=== PATIENT | female | born 1970 | race Caucasian/White ===

== ENCOUNTER 2016-11-10 05:25 | Inpatient (IN) | payer OTHER ==
[~2016-11-10] VITALS: Ht 166.4 cm; Wt 86.8 kg
[~2016-11-10 05:25] MED LIST: BENADRYL25 MG PO; BENTYL10 MG PO; CIPRO500 MG PO; CIPROFLOXACIN500 M1 PO; CLEOCIN300 MG PO; CLINDAMYCIN HC300 MG PO; DEPO-PROVE150 MG/11 IM; Ecotrin PO; Habitrol,Nicoderm CQ TD; IRON325 M1 PO; LEVO-T150 MCG PO; LEVOTHYROXINE100 MCG PO; LEVOTHYROXINE125 MCG PO; METADATE CD20 MG PO; MOBIC15 MG PO; MOTRIN800 MG PO; NABUMETONE750 MG PO; NAPROXEN500 MG PO; OXYCODONE HCL15 MG PO; PERCOCET 5/31 TABLET PO; PYRIDIUM100 MG PO; ROXICODONE15 MG PO; VENLAFAXINE HC150 M1 PO; VENLAFAXINE HCL75 M3 PO
[2016-11-10] MEDS ORDERED: WOMEN'S MULTI200 MCG PO (06:02)
[2016-11-10 06:03] VITALS: BP 105/68
[2016-11-10 10:47] VITALS: BP 110/56
[2016-11-10 12:30] VITALS: BP 92/65
[2016-11-10 20:07] VITALS: BP 115/68
[2016-11-11 00:15] VITALS: BP 133/62
[2016-11-11 04:00] VITALS: BP 103/70
[2016-11-11 05:27] LABS: HEMATOCRIT 28.2 % (36.0-46.0); MCV 96.2 FL (83-99)
[2016-11-11 08:00] VITALS: BP 127/59
[2016-11-11 12:00] VITALS: BP 108/55
[2016-11-11] MEDS ORDERED: CELECOXIB200 MG PO (13:07)
[2016-11-11] MEDS ORDERED: XARELTO10 MG PO (13:07)
[2016-11-11] MEDS ORDERED: TYLENOL REGULA325 MG PO (13:08)
[2016-11-11] MEDS ORDERED: SENNA PLUS TAB1 EACH PO (13:08)
[2016-11-11] MEDS ORDERED: LIDOCAINE700 MG TD (13:08)
[2016-11-11] MEDS ORDERED: OXYCONTIN10 MG PO (13:08)
[2016-11-11 16:04] VITALS: BP 109/57
== END 2016-11-11 17:15 | disposition home health service (06) | DRG 470 ==
LOC: 2SOUTH 05:25 → 3WEST 10:26 → 2SOUTH 10:29 → 3WEST 11-11 17:15
PROVIDERS: Orthopaedic Surgery
PROC: 0SRB04A Replacement of Left Hip Joint with Ceramic on Polyethylene Synthetic Substitute, Uncemented, Open Approach (ICD-10-PCS; principal; 2016-11-10)
DX: M16.12 Unilateral primary osteoarthritis, left hip (principal); C85.90 Non-Hodgkin lymphoma, unspecified, unspecified site; E03.9 Hypothyroidism, unspecified; F17.210 Nicotine dependence, cigarettes, uncomplicated; E66.9 Obesity, unspecified; Z68.31 Body mass index [BMI] 31.0-31.9, adult; Z85.3 Personal history of malignant neoplasm of breast; Z88.0 Allergy status to penicillin
CPT/HCPCS: 73501; 85014; 85018; J0131; J0690; J1100; J2175; J2250; J2405; J3010; J7050; J7120